=== PATIENT | male | born 1965 | race Caucasian/White ===

== ENCOUNTER 2024-05-12 02:57 | Inpatient (IN) | payer MEDICAID ==
[~2024-05-12] VITALS: Ht 175.3 cm; Wt 67.9 kg
[~2024-05-12 02:57] MED LIST: BACDS PO; HYDR1TAB PO; IBUP-1051 PO
[2024-05-12] MEDS ORDERED: UNABLE TO OBTAIN (03:29)
[2024-05-12 03:37] LABS: BASOPHILS % (AUTO) 0.3 % (0-1); EOSINOPHILS % (AUTO) 0.1 % (0-6); HEMATOCRIT 40.6 % (42.0-52.0); HEMOGLOBIN 12.9 g/dl (14.0-17.9); LYMPHOCYTES # (AUTO) 0.7 X10'3 (1.1-4.8); LYMPHOCYTES % (AUTO) 6.1 % (21-51); MEAN CORPUSCULAR HGB CONC 31.7 g/dL (33.0-36.5); MEAN PLATELET VOLUME 9.1 FL (7.4-10.4); MONOCYTES # (AUTO) 0.4 X10'3 (0-0.9); MONOCYTES % (AUTO) 3.7 % (2-12); NEUTROPHILS % (AUTO) 89.8 % (42-75); PLATELET COUNT 237 X10'3 (140-440); RED BLOOD COUNT 4.95 X10'6 (4.70-6.10); RED CELL DISTRIBUTION WIDTH 18.4 % (11.5-14.5); WHITE BLOOD COUNT 11.2 X10'3 (4.5-11.0)
[2024-05-12 03:49] LABS: ALANINE AMINOTRANSFERASE 566 U/L (12-78); ALBUMIN 3.6 G/DL (3.4-5.0); ALBUMIN/GLOBULIN RATIO 0.9 (1.1-1.5); ALKALINE PHOSPHATASE 198 IU/L (46-116); ANION GAP 14 (8-16); BLOOD UREA NITROGEN 105 MG/DL (7-18); BUN/CREATININE RATIO 26.3 (10.0-20.0); CALCIUM 9.5 MG/DL (8.5-10.1); CHLORIDE 92 MMOL/L (99-107); CREATININE 3.99 MG/DL (0.60-1.10); GLUCOSE 125 MG/DL (70-104); SODIUM 131 MMOL/L (135-145); TOTAL CARBON DIOXIDE 24.6 MMOL/L (24-32); TOTAL PROTEIN 7.5 G/DL (6.4-8.2); eCRCL 20 ML/MIN; eGFR 15 ML/MIN
[2024-05-12 03:53] LABS: ASPARTATE AMINO TRANSFERASE 402 U/L (10-37)
[2024-05-12 03:54] LABS: POTASSIUM 6.4 MMOL/L (3.5-5.1)
[2024-05-12] MEDS ORDERED: CALCIUM GLUC 1gm/50ml NACL,iso 50 ML IV PRN (04:10)
[2024-05-12] MEDS: sodium polystyrene sulfonate 15gm/60ml oral suspension PO ONE (04:19)
[2024-05-12] MEDS: dextrose 50%-water 50ml dispensing syringe IV ONE (04:19)
[2024-05-12] MEDS: insulin regular, human 10 units/0.1 ml syringe IV ONE (04:22)
[2024-05-12] MEDS: PATIROMER CALCIUM SORBITEX 8.4 GM POWD.PACK PO ONE (04:31)
[2024-05-12] MEDS ORDERED: morphine 2 MG/ML inj. syringe IV PRN (04:45)
[2024-05-12] MEDS ORDERED: acetaminophen 325mg tablet PO PRN ×2 (04:45)
[2024-05-12] MEDS ORDERED: magnesium hydroxide 30ml (MOM) UD suspension PO PRN (04:45)
[2024-05-12] MEDS ORDERED: ondansetron/PF 4mg/2ml inj IV PRN (04:45)
[2024-05-12] MEDS: LidoCAINE 2% Topical Jelly 11mL syringe (UROJET) TOP ONE (05:22)
[2024-05-12 05:28] LABS: ABG BASE EXCESS -1.5 mmol/L (-2.0-3.0); ABG HCO3 20.6 mmol/L (21.0-28.0); ABG OXYGEN SATURATION 97.9 % (94.0-98.0); ABG PCO2 (T) 26.3 mmHg (35.0-48.0); ABG PH (T) 7.507 (7.350-7.450); ABG PO2 (T) 102.1 mmHg (83.0-108.0); ALLEN'S TEST POSITIVE; FCOHb 0.4 % (0.5-1.5); FHHb 2.1 % (0.0-5.0); FMetHb 0.1 % (0.0-1.5); FO2Hb 97.4 % (94.0-98.0); PATIENT TEMPERATURE 36.1; TOTAL HEMOGLOBIN 12.6 G/dl (13.5-17.5)
[2024-05-12 05:57] LABS: APTT 24 SECONDS (22-32); INR 1.3 INR; PROTHROMBIN TIME 13.6 SECONDS (9.0-12.0)
[2024-05-12 06:16] LABS: BILIRUBIN,URINE NEGATIVE (Neg); CLARITY,URINE CLEAR (Clear); COLOR,URINE YELLOW (Yellow); GLUCOSE, URINE 250 mg/dl (Neg); KETONES,URINE NEGATIVE (Neg); LEUKOCYTE ESTERASE ,URINE NEGATIVE (Neg); NITRITES, URINE NEGATIVE (Neg); OCCULT BLOOD,URINE SMALL (Neg); PROTEIN,URINE NEGATIVE (Neg)
[2024-05-12 06:17] LABS: THYROID STIMULATING HORMONE 4.21 ulU/ml (0.34-4.50)
[2024-05-12 06:19] LABS: UA COLLECTION TYPE FOLEY CATH
[2024-05-12 06:25] LABS: BACTERIA,URINE NONE SEEN /HPF (Neg); MUCUS STRANDS NONE SEEN /LPF (Neg); RBC,URINE 0-2 /HPF (0-2); SQUAMOUS EPITHELIAL CELL,UR FEW /LPF (FEW); WBC,URINE 0-4 /HPF (0-4)
[2024-05-12 07:49] LABS: ALBUMIN 3.4 G/DL (3.4-5.0); ANION GAP 14 (8-16); BLOOD UREA NITROGEN 108 MG/DL (7-18); BUN/CREATININE RATIO 26.7 (10.0-20.0); CALCIUM 9.4 MG/DL (8.5-10.1); CHLORIDE 92 MMOL/L (99-107); CREATININE 4.04 MG/DL (0.60-1.10); GLUCOSE 138 MG/DL (70-104); POTASSIUM 4.9 MMOL/L (3.5-5.1); SODIUM 131 MMOL/L (135-145); TOTAL CARBON DIOXIDE 25.1 MMOL/L (24-32); eCRCL 19 ML/MIN; eGFR 15 ML/MIN
[2024-05-12] MEDS: heparin, porcine 5000 units/ml vial SQ SCH (08:40)
[2024-05-12 14:00] VITALS: BP 114/74; PULSE 68; TEMP 96.9; O2SAT 96
[2024-05-12 18:00] VITALS: BP 100/68; PULSE 77; RESP 20; TEMP 97.7; O2SAT 95
[2024-05-12] MEDS ORDERED: diphenhydrAMINE 50 mg/ml inj IV PRN (18:20)
[2024-05-12 18:48] LABS: URINE AMPHETAMINE SCREEN NEGATIVE (Neg); URINE BARBITUATE SCREEN NEGATIVE (Neg); URINE BENZODIAZEPINES SCREEN NEGATIVE (Neg); URINE CANNABINOID SCREEN NEGATIVE (Neg); URINE COCAINE SCREEN NEGATIVE (Neg); URINE METHADONE SCREEN NEGATIVE (Neg); URINE OPIATE SCREEN NEGATIVE (Neg); URINE PHENCYCLIDINE SCREEN NEGATIVE (Neg)
[2024-05-12 18:49] VITALS: RESP 16; O2SAT 95
[2024-05-12 20:00] VITALS: RESP 20; O2SAT 95
[2024-05-12] MEDS ORDERED: CefTRIAXone 2gm/D5W 50ml BAG 50 ML IV SCH (20:00)
[2024-05-12] MEDS: AZITHROMYCIN 500 MG in NS 250ml IV.SOLN IV SCH (21:44)
[2024-05-12] MEDS: furosemide 40mg/4ml inj IV SCH (21:46)
[2024-05-12 22:00] VITALS: BP 95/42; PULSE 81; RESP 26; TEMP 96.8; O2SAT 93
[2024-05-12 23:43] LABS: ABG BASE EXCESS -3.3 mmol/L (-2.0-3.0); ABG HCO3 17.4 mmol/L (21.0-28.0); ABG OXYGEN SATURATION 96.2 % (94.0-98.0); ABG PCO2 (T) 20.5 mmHg (35.0-48.0); ABG PH (T) 7.544 (7.350-7.450); ABG PO2 (T) 73.6 mmHg (83.0-108.0); ALLEN'S TEST Modified; FCOHb 0.6 % (0.5-1.5); FHHb 3.8 % (0.0-5.0); FLOW 3 L/min; FMetHb 0.3 % (0.0-1.5); FO2Hb 95.3 % (94.0-98.0); MODE NASAL CANNULA; PATIENT TEMPERATURE 35.8; TOTAL HEMOGLOBIN 13.1 G/dl (13.5-17.5)
[2024-05-12] MEDS: normal saline 500ml IV soln 500 ML IV ONE (23:50)
[2024-05-13] VITALS (17 sets, daily range): BP systolic 66–113; BP diastolic 41–83; PULSE 73–83; RESP 16–26; TEMP 97.2–98.3; O2SAT 92–100
[2024-05-13 06:38] LABS: BASOPHILS % (AUTO) 0.1 % (0-1); EOSINOPHILS % (AUTO) 0 % (0-6); HEMATOCRIT 35.3 % (42.0-52.0); HEMOGLOBIN 11.4 g/dl (14.0-17.9); LYMPHOCYTES # (AUTO) 0.7 X10'3 (1.1-4.8); LYMPHOCYTES % (AUTO) 6.4 % (21-51); MEAN CORPUSCULAR HEMOGLOBIN 26.2 PG (27.0-31.0); MEAN CORPUSCULAR HGB CONC 32.3 g/dL (33.0-36.5); MEAN CORPUSCULAR VOLUME 81.2 FL (78-98); MEAN PLATELET VOLUME 9.7 FL (7.4-10.4); MONOCYTES # (AUTO) 0.6 X10'3 (0-0.9); MONOCYTES % (AUTO) 5.5 % (2-12); NEUTROPHILS # (AUTO) 10.1 X10'3 (1.8-7.7); PLATELET COUNT 185 X10'3 (140-440); RED BLOOD COUNT 4.35 X10'6 (4.70-6.10); RED CELL DISTRIBUTION WIDTH 18.6 % (11.5-14.5); WHITE BLOOD COUNT 11.5 X10'3 (4.5-11.0)
[2024-05-13 07:00] LABS: ALANINE AMINOTRANSFERASE 453 U/L (12-78); ALBUMIN 3.4 G/DL (3.4-5.0); ALKALINE PHOSPHATASE 205 IU/L (46-116); ANION GAP 14 (8-16); ASPARTATE AMINO TRANSFERASE 182 U/L (10-37); BILIRUBIN,TOTAL 1.3 MG/DL (0.1-1.0); BLOOD UREA NITROGEN 114 MG/DL (7-18); BUN/CREATININE RATIO 30.8 (10.0-20.0); CALCIUM 9.2 MG/DL (8.5-10.1); CHLORIDE 95 MMOL/L (99-107); GLUCOSE 132 MG/DL (70-104); POTASSIUM 4.1 MMOL/L (3.5-5.1); SODIUM 133 MMOL/L (135-145); TOTAL CARBON DIOXIDE 24.3 MMOL/L (24-32); TOTAL PROTEIN 6.9 G/DL (6.4-8.2); eCRCL 21 ML/MIN; eGFR 17 ML/MIN
[2024-05-13] MEDS ORDERED: DOBUTamine 2000 MCG/250ML BAG IV SCH (18:20)
[2024-05-13] MEDS: furosemide 20 MG/2 ML vial IV SCH (20:00)
[2024-05-13] MEDS: metoprolol succinate 25mg (24-HOUR) SR. Tablet PO SCH (20:00)
[2024-05-14] VITALS (8 sets, daily range): BP systolic 91–109; BP diastolic 52–74; PULSE 74–83; RESP 12–21; TEMP 97–98.4; O2SAT 96–99
[2024-05-14] MEDS: normal saline 500ml IV soln 500 ML IV ONE (01:41)
[2024-05-14 06:09] LABS: BASOPHILS % (AUTO) 0.1 % (0-1); EOSINOPHILS % (AUTO) 0 % (0-6); HEMATOCRIT 34.5 % (42.0-52.0); HEMOGLOBIN 11.1 g/dl (14.0-17.9); LYMPHOCYTES # (AUTO) 1.2 X10'3 (1.1-4.8); LYMPHOCYTES % (AUTO) 11.5 % (21-51); MEAN CORPUSCULAR HEMOGLOBIN 26.4 PG (27.0-31.0); MEAN CORPUSCULAR HGB CONC 32.1 g/dL (33.0-36.5); MEAN CORPUSCULAR VOLUME 82.1 FL (78-98); MEAN PLATELET VOLUME 9.6 FL (7.4-10.4); MONOCYTES # (AUTO) 0.7 X10'3 (0-0.9); MONOCYTES % (AUTO) 6.1 % (2-12); NEUTROPHILS # (AUTO) 8.8 X10'3 (1.8-7.7); NEUTROPHILS % (AUTO) 82.3 % (42-75); PLATELET COUNT 182 X10'3 (140-440); RED CELL DISTRIBUTION WIDTH 18.5 % (11.5-14.5); WHITE BLOOD COUNT 10.7 X10'3 (4.5-11.0)
[2024-05-14 06:11] LABS: HBSAG SCREEN Negative (Negative); HEP B CORE AB, IGM Negative (Negative)
[2024-05-14 06:33] LABS: ALANINE AMINOTRANSFERASE 353 U/L (12-78); ALBUMIN 3.1 G/DL (3.4-5.0); ALBUMIN/GLOBULIN RATIO 0.9 (1.1-1.5); ALKALINE PHOSPHATASE 256 IU/L (46-116); ANION GAP 12 (8-16); ASPARTATE AMINO TRANSFERASE 127 U/L (10-37); BLOOD UREA NITROGEN 112 MG/DL (7-18); CALCIUM 9.1 MG/DL (8.5-10.1); CHLORIDE 97 MMOL/L (99-107); CREATININE 3.03 MG/DL (0.60-1.10); GLUCOSE 101 MG/DL (70-104); POTASSIUM 3.6 MMOL/L (3.5-5.1); SODIUM 134 MMOL/L (135-145); TOTAL PROTEIN 6.4 G/DL (6.4-8.2); eCRCL 26 ML/MIN; eGFR 21 ML/MIN
[2024-05-14] MEDS: NUT.TX.IMP.RENAL FXN,LAC-REDUC (Nepro) 237 ML VANILLA PO SCH (12:30)
[2024-05-15] VITALS (11 sets, daily range): BP systolic 85–115; BP diastolic 46–83; PULSE 72–153; RESP 16–20; TEMP 97.4–98; O2SAT 95–100
[2024-05-15] MEDS: diphenhydrAMINE 50 mg/ml inj IV ONE (01:43)
[2024-05-15] MEDS: HYDROcodone/acetaminophen 10/325mg tab PO ONE (01:45)
[2024-05-15 06:03] LABS: BASOPHILS % (AUTO) 0.1 % (0-1); EOSINOPHILS % (AUTO) 0.4 % (0-6); HEMATOCRIT 34.7 % (42.0-52.0); LYMPHOCYTES # (AUTO) 1.4 X10'3 (1.1-4.8); LYMPHOCYTES % (AUTO) 16.4 % (21-51); MEAN CORPUSCULAR HEMOGLOBIN 26.1 PG (27.0-31.0); MEAN CORPUSCULAR HGB CONC 31.5 g/dL (33.0-36.5); MEAN CORPUSCULAR VOLUME 82.9 FL (78-98); MEAN PLATELET VOLUME 8.8 FL (7.4-10.4); MONOCYTES # (AUTO) 0.4 X10'3 (0-0.9); MONOCYTES % (AUTO) 4.8 % (2-12); NEUTROPHILS # (AUTO) 6.6 X10'3 (1.8-7.7); NEUTROPHILS % (AUTO) 78.3 % (42-75); PLATELET COUNT 173 X10'3 (140-440); RED BLOOD COUNT 4.19 X10'6 (4.70-6.10); RED CELL DISTRIBUTION WIDTH 18.6 % (11.5-14.5); WHITE BLOOD COUNT 8.4 X10'3 (4.5-11.0)
[2024-05-15 06:24] LABS: ALANINE AMINOTRANSFERASE 289 U/L (12-78); ALBUMIN/GLOBULIN RATIO 0.9 (1.1-1.5); ALKALINE PHOSPHATASE 253 IU/L (46-116); ANION GAP 10 (8-16); ASPARTATE AMINO TRANSFERASE 85 U/L (10-37); BLOOD UREA NITROGEN 91 MG/DL (7-18); BUN/CREATININE RATIO 34.9 (10.0-20.0); CALCIUM 8.6 MG/DL (8.5-10.1); CHLORIDE 101 MMOL/L (99-107); CREATININE 2.61 MG/DL (0.60-1.10); GLUCOSE 89 MG/DL (70-104); POTASSIUM 3.5 MMOL/L (3.5-5.1); SODIUM 140 MMOL/L (135-145); TOTAL CARBON DIOXIDE 28.9 MMOL/L (24-32); TOTAL PROTEIN 6.3 G/DL (6.4-8.2); eCRCL 30 ML/MIN; eGFR 25 ML/MIN
[2024-05-15] MEDS: aspirin 81mg, enteric-coated 1 TAB TABLET.DR PO SCH (09:17)
[2024-05-15] MEDS ORDERED: amiodarone 150mg/dext, iso-os 100 ML IV ONE (13:25)
[2024-05-15] MEDS ORDERED: normal saline 250ml IV soln 250 ML IV ONE (13:40)
[2024-05-15] MEDS ORDERED: metoprolol tartrate 12.5mg (1/2 tablet) PO SCH (14:11)
[2024-05-15] MEDS ORDERED: HYDROcodone/acetaminophen 5mg/325mg tablet PO ONE (19:45)
[2024-05-15] MEDS ORDERED: metoprolol tartrate 1mg/ml inj IV ONE (19:55)
[2024-05-15] MEDS: metoprolol tartrate 1mg/ml inj IV ONE ×2 (20:07→21:21)
[2024-05-16 02:00] VITALS: BP 91/60; PULSE 77; RESP 18; TEMP 98.2; O2SAT 96
[2024-05-16 06:14] LABS: BASOPHILS % (AUTO) 0.1 % (0-1); EOSINOPHILS # (AUTO) 0.2 X10'3 (0-0.9); EOSINOPHILS % (AUTO) 1.7 % (0-6); HEMATOCRIT 36.1 % (42.0-52.0); HEMOGLOBIN 11.4 g/dl (14.0-17.9); LYMPHOCYTES # (AUTO) 1.4 X10'3 (1.1-4.8); LYMPHOCYTES % (AUTO) 14.4 % (21-51); MEAN CORPUSCULAR HEMOGLOBIN 26.1 PG (27.0-31.0); MEAN CORPUSCULAR HGB CONC 31.4 g/dL (33.0-36.5); MEAN CORPUSCULAR VOLUME 83.1 FL (78-98); MEAN PLATELET VOLUME 9.2 FL (7.4-10.4); MONOCYTES # (AUTO) 0.5 X10'3 (0-0.9); MONOCYTES % (AUTO) 5.1 % (2-12); NEUTROPHILS # (AUTO) 7.4 X10'3 (1.8-7.7); NEUTROPHILS % (AUTO) 78.7 % (42-75); PLATELET COUNT 204 X10'3 (140-440); RED BLOOD COUNT 4.35 X10'6 (4.70-6.10); WHITE BLOOD COUNT 9.5 X10'3 (4.5-11.0)
[2024-05-16 06:31] LABS: ALANINE AMINOTRANSFERASE 257 U/L (12-78); ALBUMIN 3.1 G/DL (3.4-5.0); ALBUMIN/GLOBULIN RATIO 0.9 (1.1-1.5); ALKALINE PHOSPHATASE 268 IU/L (46-116); ANION GAP 8 (8-16); ASPARTATE AMINO TRANSFERASE 81 U/L (10-37); BLOOD UREA NITROGEN 71 MG/DL (7-18); BUN/CREATININE RATIO 35.1 (10.0-20.0); CHLORIDE 103 MMOL/L (99-107); CREATININE 2.02 MG/DL (0.60-1.10); GLUCOSE 104 MG/DL (70-104); POTASSIUM 3.5 MMOL/L (3.5-5.1); SODIUM 138 MMOL/L (135-145); TOTAL CARBON DIOXIDE 26.6 MMOL/L (24-32); TOTAL PROTEIN 6.5 G/DL (6.4-8.2); eCRCL 38 ML/MIN; eGFR 34 ML/MIN
[2024-05-16 07:00] VITALS: BP 107/80; PULSE 74; RESP 20; TEMP 98.3; O2SAT 97
[2024-05-16 07:28] LABS: PLATELET ESTIMATE NORMAL
[2024-05-16 07:29] LABS: POLYCHROMASIA 1+
[2024-05-16 07:31] LABS: ANISOCYTOSIS 2+; BURR CELLS 1+; ELLIPTOCYTES 1+; SCHISTOCYTES FEW
[2024-05-16] MEDS ORDERED: metoprolol succinate 25mg (24-HOUR) SR. Tablet PO SCH ×2 (08:00→08:41)
[2024-05-16] MEDS: metoprolol succinate 25mg (24-HOUR) SR. Tablet PO SCH (10:15)
[2024-05-16 11:00] VITALS: BP 106/77; PULSE 80; RESP 16; TEMP 98.3; O2SAT 96
[2024-05-16] MEDS ORDERED: ASPI-1071 PO (11:19)
[2024-05-16] MEDS ORDERED: METO-395 PO (11:19)
[2024-05-16] MEDS ORDERED: APIX5TAB5 PO (11:27)
[2024-05-17 13:12] LABS: ALPHA-1-GLOBULIN 0.3 g/dL (0.0-0.4); ALPHA-2-GLOBULIN 0.7 g/dL (0.4-1.0); BETA GLOBULIN 1.1 g/dL (0.7-1.3); GAMMA GLOBULIN 1.1 g/dL (0.4-1.8); GLOBULIN, TOTAL 3.1 g/dL (2.2-3.9); M-SPIKE Not Observed g/dL (Not Observed); PROTEIN, TOTAL, SERUM 6.1 g/dL (6.0-8.5)
== END 2024-05-16 12:51 | disposition home or self-care (01) | DRG 720 ==
LOC: ER 02:58 → ED HOLD 04:52 → PCU 3S 13:27
PROVIDERS: ADMIT Internal Medicine Sleep Medicine; ATTEND Internal Medicine Sleep Medicine
DX: A41.9 Sepsis, unspecified organism (principal); I50.23 Acute on chronic systolic (congestive) heart failure; E87.3 Alkalosis; I42.0 Dilated cardiomyopathy; J18.9 Pneumonia, unspecified organism; N17.9 Acute kidney failure, unspecified; E87.1 Hypo-osmolality and hyponatremia; I50.82 Biventricular heart failure; R18.8 Other ascites; E87.5 Hyperkalemia; F17.201 Nicotine dependence, unspecified, in remission; R74.01 Elevation of levels of liver transaminase levels; N18.30 Chronic kidney disease, stage 3 unspecified; J43.9 Emphysema, unspecified; I48.0 Paroxysmal atrial fibrillation; I47.20 Ventricular tachycardia, unspecified; I08.1 Rheumatic disorders of both mitral and tricuspid valves; R09.02 Hypoxemia; I42.7 Cardiomyopathy due to drug and external agent; T43.625A Adverse effect of amphetamines, initial encounter; Z88.0 Allergy status to penicillin; Z91.148 Patient's other noncompliance with medication regimen for other reason; Y92.89 Other specified places as the place of occurrence of the external cause
CPT/HCPCS: 36415; 36600; 71045; 76770; 80048; 80053; 80305; 81001; 82140; 82150; 82570; 82803; 82948; 83605; 83690; 83880; 84133; 84145; 84155; 84165; 84300; 84443; 85008; 85018; 85025; 85610; 85730; 86705; 87040; 87081; 87340; 93005; 93306; 97116; 97162; 97530; 99285; A4615; A4620; A6258; G0378; J0456; J1200; J1644; J1815; J1940; J3490; J7040